=== PATIENT | female | born 1995 | race Caucasian/White ===

== ENCOUNTER 2017-08-20 15:16 | Emergency (ER) | payer OTHER ==
[2017-08-20 16:53] VITALS: BP 135/81
--- NOTE | 2017-08-20 17:15 | UC ---
Lower Extremity/Ankle HPI - HPI Summary HPI Summary: pt states she rolled her L ankle stepping off a curb 2 days ago. she is c/o pain and swelling. she notes she got an abrasion to her r knee as well. triage noted foot pain but pt denies that on exam. last tetanus shot is unknown. - History of Current Complaint Hx Obtained From: Patient Hx Last Menstrual Period: Spotting since 08/06/17- irregular menes ?: No Onset/Duration: Sudden Onset Pain Intensity: 5 Aggravating Factor(s): Ambulation Alleviating Factor(s): Rest Able to Bear Weight: Yes - Risk Factors Gout Risk Factors: Negative DVT Risk Factors: Negative Septic Arthritis Risk Factor: Negative <Katrin Hartman - Last Filed: 08/20/17 18:30> <Jeanette Wharton - Last Filed: 08/20/17 19:30> - History of Current Complaint Chief Complaint: UCLowerExtremity Stated Complaint: LEFT ANKLE Time Seen by Provider: 08/20/17 17:03 - Allergies/Home Medications Allergies/Adverse Reactions: Allergies Allergy/AdvReac Type Severity Reaction Status Date / Time lactose Allergy Diarrhea Verified 08/20/17 16:48 Home Medications: Home Medications Ibuprofen TAB* [Advil TAB*] 600 mg PO ONCE PRN 08/20/17 [History Confirmed 08/20] PMH/Surg Hx/FS Hx/Imm Hx Previously Healthy: Yes Other History Of: Negative For: HIV, Hepatitis B, Hepatitis C - Surgical History Surgical History: Yes Surgery Procedure, Year, and Place: TONSILLECTOMY - Family History Known Family History: Positive: Hypertension - Social History Occupation: Employed Full-time Alcohol Use: Occasionally Substance Use Type: Marijuana Substance Use Comment - Amount & Last Used: Daily Smoking Status (MU): Never Smoked Tobacco Household Exposure Type: Cigarettes <Katrin Hartman - Last Filed: 08/20/17 18:30> Review of Systems Constitutional: Negative Skin: Other - Abrasion r knee Eyes: Negative ENT: Negative Respiratory: Negative Cardiovascular: Negative Gastrointestinal: Negative Genitourinary: Negative Motor: Negative Neurovascular: Negative Musculoskeletal: Other: - pain, swelling L ankle Neurological: Negative Psychological: Negative Is Patient Immunocompromised?: No All Other Systems Reviewed And Are Negative: Yes <Katrin Hartman - Last Filed: 08/20/17 18:30> Physical Exam Triage Information Reviewed: Yes Appearance: Well-Appearing Vital Signs: Initial Vital Signs Temp 98.7 F 08/20/17 16:49 Pulse 96 08/20/17 16:49 Resp 16 08/20/17 16:49 BP 135/81 08/20/17 16:49 Pulse Ox 98 08/20/17 16:49 Vital Signs Reviewed: Yes Eye Exam: Normal ENT: Positive: Normal ENT inspection Neck: Positive: Supple, Nontender Respiratory: Positive: Lungs clear, Normal breath sounds Cardiovascular: Positive: RRR, No Murmur Abdomen Description: Positive: Nontender, No Organomegaly, Soft Bowel Sounds: Positive: Present Musculoskeletal: Positive: Other: - RLE: abrasion R anterior knee with no red, swelling or tenderness, s/v/m is intact. LLE: hip, knee, achilles and foot are atraumatic. Lateral ankle with swelling, mild bruising and tender. Foot has full s/v/m function. <Katrin Hartman - Last Filed: 08/20/17 18:30> Vital Signs: Initial Vital Signs Temp 98.7 F 08/20/17 16:49 Pulse 96 08/20/17 16:49 Resp 16 08/20/17 16:49 BP 135/81 08/20/17 16:49 Pulse Ox 98 08/20/17 16:49 <Jeanette Wharton - Last Filed: 08/20/17 19:30> Diagnostics - Laboratory Diagnostic Studies Completed/Ordered: hcg=negative - Radiology No standard instances Xray Interpretation: Positive (See Comments) - sts, no fx/dislocation Radiology Interpretation Completed By: Radiologist <Katrin Hartman - Last Filed: 08/20/17 18:30> Lower Extremity Course/Dx - Course Course Of Treatment: abrasion R knee not infected and was cleaned. pt states tetanus is probably utd and is refusing update here citing it would hurt to much. L ankle=no fx/dislocation. pain medication declined. - Differential Dx/Diagnosis Provider Diagnoses: Abrasion R knee. sprain L ankle <Katrin Hartman - Last Filed: 08/20/17 18:30> Discharge - Sign-Out/Discharge Documenting (check all that apply): Discharge - Billing Disposition and Condition Condition: STABLE Disposition: HOME <Katrin Hartman - Last Filed: 08/20/17 18:30> - Billing Disposition and Condition Condition: STABLE Disposition: HOME <Jeanette Wharton - Last Filed: 08/20/17 19:30> - Discharge Plan Condition: Stable Disposition: HOME Patient Education Materials: Ankle Sprain (ED), Abrasion (ED) Forms: *Work Release Referrals: ARMEN Mak [Primary Care Provider] - 7 Days Additional Instructions: lyle and splint until cleared Attestation Statement User Type: Provider - I was available for consult. This patient was seen by the advanced practice provider. The patient was not presented to, seen by, or examined by me.-Franco <Jeanette Wharton - Last Filed: 08/20/17 19:30>
--- NOTE | 2017-08-20 18:22 | RAD ---
INDICATION: Lateral left ankle pain after inversion injury COMPARISON: None. TECHNIQUE: 3 views of the left ankle were obtained. FINDINGS: There is a mild degree of soft tissue swelling overlying the fibular malleolus. The well corticated bones exhibit normal alignment. Joint spaces appear maintained. No fracture is seen. IMPRESSION: MILD SOFT TISSUE SWELLING OVERLYING THE FIBULAR MALLEOLUS WITHOUT UNDERLYING FRACTURE OR DISLOCATION. If the patient's symptoms persist, follow-up imaging is recommended.
== END 2017-08-20 18:41 | disposition home or self-care (01) ==
LOC: UCCORT 15:16
DX: S80.211A Abrasion, right knee, initial encounter (principal); S93.402A Sprain of unspecified ligament of left ankle, initial encounter; X50.0XXA Overexertion from strenuous movement or load, initial encounter; Y93.01 Activity, walking, marching and hiking; Y92.480 Sidewalk as the place of occurrence of the external cause; Z32.02 Encounter for pregnancy test, result negative
CPT/HCPCS: 84702; 99213; G0463

== ENCOUNTER 2017-11-23 14:01 | Emergency (ER) | payer OTHER ==
[2017-11-23 14:21] VITALS: BP 140/96
--- NOTE | 2017-11-23 14:22 | UC ---
Skin Complaint HPI - HPI Summary HPI Summary: Patient states that on October 18 of this year she had a ganglion removed from her right foot by Dr. Jose Tolbert. The stitches were removed 2 weeks after the procedure. The day after suture removal the wound popped open. Patient notes that same week the wound started to drain. She followed up with her surgeon and was diagnosed with an infection. He treated her with Augmentin for 10 days after which it was much improved. About 3 days ago she states she developed a yellow foul-smelling drainage. She called the surgeon and sent him a picture. She states he advised that the wound looked fine to him; however, he wrote her for a second course of Augmentin for 7 days. She picked up the prescription yesterday but didn't want to start it until she got the wound checked. Patient denies any history of fever chills, acute injury, MRSA and diabetes. She's had no difficulty with ambulation. She has no other complaints. She does however offered that she applied some butterfly Band-Aids to the site. - History of Current Complaint Hx Obtained From: Patient Hx Last Menstrual Period: Spotting since 08/06/17- irregular menes <Katrin Hartman - Last Filed: 11/23/17 14:48> <Jeanette Wharton - Last Filed: 11/23/17 15:03> - History of Current Complaint Time Seen by Provider: 11/23/17 14:08 Stated Complaint: SKIN CONCERN - Allergy/Home Medications Allergies/Adverse Reactions: Allergies Allergy/AdvReac Type Severity Reaction Status Date / Time lactose Allergy Diarrhea Verified 11/23/17 14:08 Home Medications: Home Medications Amoxicillin/Clavulanate TAB* [Augmentin TAB 875*] 875 mg PO BID 11/23/17 [ History Confirmed 11/23/17] Ibuprofen TAB* [Motrin TAB* 800 MG] 800 mg PO Q6H 11/23/17 [History Confirmed ] Review of Systems Constitutional: Negative Skin: Rash - R foot infection Eyes: Negative ENT: Negative Respiratory: Negative Cardiovascular: Negative Gastrointestinal: Negative Genitourinary: Negative Motor: Negative Neurovascular: Negative Musculoskeletal: Negative Neurological: Negative Psychological: Negative Is Patient Immunocompromised?: No All Other Systems Reviewed And Are Negative: Yes <Katrin Hartman - Last Filed: 11/23/17 14:48> PMH/Surg Hx/FS Hx/Imm Hx - Additional Past Medical History Additional PMH: ganglion R foot Other History Of: Negative For: HIV, Hepatitis B, Hepatitis C - Surgical History Surgical History: Yes Surgery Procedure, Year, and Place: TONSILLECTOMY - Family History Known Family History: Positive: Hypertension - Social History Occupation: Employed Full-time Alcohol Use: Occasionally Substance Use Type: Marijuana Substance Use Comment - Amount & Last Used: Daily Smoking Status (MU): Never Smoked Tobacco Household Exposure Type: Cigarettes <Katrin Hartman - Last Filed: 11/23/17 14:48> Physical Exam Triage Information Reviewed: Yes Appearance: Well-Appearing Vital Signs Reviewed: Yes Eyes: Positive: Conjunctiva Clear ENT: Positive: Normal ENT inspection Neck: Positive: Supple, Nontender, No Lymphadenopathy Respiratory: Positive: Lungs clear, Normal breath sounds Cardiovascular: Positive: RRR, No Murmur Abdomen Description: Positive: Nontender, No Organomegaly, Soft Bowel Sounds: Positive: Present Musculoskeletal: Positive: ROM Intact Neurological: Positive: Alert Psychological: Positive: Age Appropriate Behavior Skin Exam: Normal, Other - Right foot exam: There are 3 Steri-Strips and placed to the distal lateral aspect of the foot over the surgical site. When compared to the left foot, there is no swelling or erythema or warmth. With patient permission, I removed the Steri-Strips. There is no malodor. There is no drainage. There is a pale superficial flap which I was able to lift. The area underneath appears to be healing; however, I did obtain a culture. The foot has gross sensorivascular motor function up to the point of the procedure. Patient does note sensation to the fifth toe is mildly diminished. <Katrin Hartman - Last Filed: 11/23/17 14:48> Vital Signs: Initial Vital Signs Temp 98.5 F 11/23/17 14:12 Pulse 89 11/23/17 14:12 Resp 16 11/23/17 14:12 BP 140/96 11/23/17 14:12 Pulse Ox 100 11/23/17 14:12 <Jeanette Wharton - Last Filed: 11/23/17 15:03> Course/Dx - Course Course Of Treatment: post op site has no swelling, erythema, malodor or drainage. i see no active infection. she is to resume tx per her surgeon along with close f/u for a recheck. I have a culture pending. she is to f/u sooner for any concerns. site covered wityh bacitracin and a sterile 2x2 gauze held with non occlusive tape - Diagnoses Provider Diagnoses: Wound check R foot. <Katrin Hartman - Last Filed: 11/23/17 14:48> Discharge - Sign-Out/Discharge Documenting (check all that apply): Discharge/Admit/Transfer - Billing Disposition and Condition Condition: STABLE Disposition: Home <Katrin Hartman - Last Filed: 11/23/17 14:48> - Billing Disposition and Condition Condition: STABLE Disposition: Home <Jeanette Wharton - Last Filed: 11/23/17 15:03> - Discharge Plan Condition: Stable Disposition: HOME Patient Education Materials: Acute Wound Care (ED) Referrals: Monica Turpin MD [Primary Care Provider] - If Needed Jose Tolbert DPM [Doctor of Podiatric Medicine] - Additional Instructions: CONTINUE TREATMENT PER YOUR SURGEON. TAKE THE AUGMENTIN DIRECTED. FOLLOW UP DR JEWELL IN 7 DAYS OR SOONER IF WORSE. Attestation Statement User Type: Provider - I was available for consult. This patient was seen by the [facility]. The patient was not presented to, seen by, or examined by me. -Franco <Jeanette Wharton - Last Filed: 11/23/17 15:03>
--- NOTE | 2017-11-26 07:26 | ED ---
Progress - Progress Note Progress Note: Call patient to see how they are doing. Katrin Hartman note states the wound was healing well with no foul smell and no drainage. They are on Augmentin. If they are doing well, then follow up with their doctor. If they are worse they need to be seen again. Course/Dx - Course Course Of Treatment: post op site has no swelling, erythema, malodor or drainage. i see no active infection. she is to resume tx per her surgeon along with close f/u for a recheck. I have a culture pending. she is to f/u sooner for any concerns. site covered wityh bacitracin and a sterile 2x2 gauze held with non occlusive tape Discharge - Sign-Out/Discharge Documenting (check all that apply): Discharge/Admit/Transfer - Discharge Plan Condition: Stable Disposition: HOME Patient Education Materials: Acute Wound Care (ED) Referrals: Monica Turpin MD [Primary Care Provider] - If Needed Jose Tolbert DPM [Doctor of Podiatric Medicine] - Additional Instructions: CONTINUE TREATMENT PER YOUR SURGEON. TAKE THE AUGMENTIN DIRECTED. FOLLOW UP DR JEWLEL IN 7 DAYS OR SOONER IF WORSE. - Billing Disposition and Condition Condition: STABLE Disposition: Home
== END 2017-11-23 14:52 | disposition home or self-care (01) ==
LOC: UCCORT 14:01
DX: Z48.00 Encounter for change or removal of nonsurgical wound dressing (principal); Z77.22 Contact with and (suspected) exposure to environmental tobacco smoke (acute) (chronic)
CPT/HCPCS: 87070; 87077; 87186; 87205; 87640; 87641; 99211; G0463

== ENCOUNTER 2018-08-05 16:23 | Emergency (ER) | payer OTHER ==
[2018-08-05 18:18] VITALS: BP 126/79
--- NOTE | 2018-08-05 18:44 | UC ---
Throat Pain/Nasal Bar HPI - HPI Summary HPI Summary: 23 yo female with sore throat x 1 week fatigue swollen glands no f/c no vomiting has had nausea and diarrhea - History of Current Complaint Chief Complaint: UCRespiratory Stated Complaint: THROAT COMPLAINT Time Seen by Provider: 08/05/18 18:10 Hx Obtained From: Patient Hx Last Menstrual Period: 'A MONTH AGO' Onset/Duration: Gradual Onset, Lasting Days Severity: Mild Pain Intensity: 4 Pain Scale Used: 0-10 Numeric Associated Signs & Symptoms: Negative: Dysphagia, FB Sensation, Drooling, Wheezing, Hoarseness, Sinus Discomfort, Nasal Discharge, Fever, Vomiting, Rash Related History: Prior ENT Surgery, T & A - Epiglottits Risk Factors Epiglottis Risk Factors: Negative - Allergies/Home Medications Allergies/Adverse Reactions: Allergies Allergy/AdvReac Type Severity Reaction Status Date / Time lactose Allergy Diarrhea Verified 08/05/18 18:12 Home Medications: Home Medications PARoxetine HCL TAB* [Paxil TAB*] 1 tab DAILY 08/05/18 [History Confirmed ] Vilazodone HCl [Viibryd] 1 tab DAILY 08/05/18 [History Confirmed 08/05/18] clonazePAM TAB(*) [Klonopin TAB(*)] 1 tab DAILY PRN 08/05/18 [History Confirmed 08/05/18] PMH/Surg Hx/FS Hx/Imm Hx Previously Healthy: Yes Other History Of: Negative For: HIV, Hepatitis B, Hepatitis C - Surgical History Surgical History: Yes Surgery Procedure, Year, and Place: TONSILLECTOMY. CYST REOMVED RIGHT FOOT - Family History Known Family History: Positive: Hypertension - Social History Alcohol Use: Rare Substance Use Type: Marijuana Substance Use Comment - Amount & Last Used: Daily Smoking Status (MU): Never Smoked Tobacco Household Exposure Type: Cigarettes Review of Systems All Other Systems Reviewed And Are Negative: Yes Constitutional: Positive: Fatigue Skin: Positive: Negative Eyes: Positive: Negative ENT: Positive: Sore Throat Respiratory: Positive: Negative Cardiovascular: Positive: Negative Gastrointestinal: Positive: Diarrhea - 4-5 x day for past 2 days, Nausea Genitourinary: Positive: Negative Motor: Positive: Negative Neurovascular: Positive: Negative Musculoskeletal: Positive: Negative Neurological: Positive: Headache Psychological: Positive: Negative Physical Exam Triage Information Reviewed: Yes Appearance: Well-Appearing, No Pain Distress, Well-Nourished Vital Signs: Initial Vital Signs Temp 98.3 F 08/05/18 18:13 Pulse 84 08/05/18 18:13 Resp 16 08/05/18 18:13 BP 126/79 08/05/18 18:13 Pulse Ox 98 08/05/18 18:13 Vital Signs Reviewed: Yes Eyes: Positive: Conjunctiva Clear ENT: Positive: Hearing grossly normal, Pharyngeal erythema, TMs normal, Uvula midline. Negative: Nasal congestion, Nasal drainage, Tonsillar swelling, Tonsillar exudate, Trismus, Muffled voice, Hoarse voice Neck: Positive: Supple, Enlarged Nodes @ - L>R ant cerv Respiratory: Positive: Lungs clear, Normal breath sounds, No respiratory distress, No accessory muscle use Cardiovascular: Positive: RRR, No Murmur Abdomen Description: Negative: Nontender - tender LLQ Musculoskeletal: Positive: ROM Intact, No Edema Neurological Exam: Normal Neurological: Positive: Alert Psychological Exam: Normal Throat Pain/Nasal Course/Dx - Course Course Of Treatment: strep (-) - Differential Dx/Diagnosis Provider Diagnosis: Pharyngitis, Acute diarrhea Discharge - Sign-Out/Discharge Documenting (check all that apply): Patient Departure All imaging exams completed and their final reports reviewed: No Studies - Discharge Plan Condition: Stable Disposition: HOME Patient Education Materials: Pharyngitis (ED) Referrals: Monica Turpin MD [Primary Care Provider] - 4 Days (if not better) Additional Instructions: strep (-) test for mono pending rest fluids tylenol or advil bring in stools for studies - Billing Disposition and Condition Condition: STABLE Disposition: Home
[2018-08-06 10:30] LABS: ABS Basophils 0 10^3/ul (0-0.2); ABS Eosinophils 0.1 10^3/ul (0-0.6); ABS Lymphocytes 1.9 10^3/ul (1.0-4.8); ABS Monocytes 0.5 10^3/ul (0-0.8); ABS Neutrophils 4.8 10^3/ul (1.5-7.7); ABS Nucleated RBC 0 10^3/ul; Eosinophil % 0.8 %; Hematocrit 42 % (35-47); Lymphocyte % 26.4 %; Mean Corpuscular HGB Conc 34 g/dl (31-36); Mean Corpuscular Hemoglobin 30 pg (27-31); Mean Corpuscular Volume 88 fL (80-97); Mean Platelet Volume 9.6 fL (7.4-10.4); Nucleated Red Blood Cells % 0.2; Platelet Count 240 10^3/ul (150-450); Red Blood Count 4.72 10^6/ul (4.00-5.40); Red Cell Distribution Width 14 % (10.5-15); White Blood Count 7.3 10^3/ul (3.5-10.8)
== END 2018-08-05 18:55 | disposition home or self-care (01) ==
LOC: UCCORT 16:23
DX: J02.9 Acute pharyngitis, unspecified (principal); R19.7 Diarrhea, unspecified; Z91.011 Allergy to milk products
CPT/HCPCS: 36415; 85025; 86308; 87651; 99211; G0463

== ENCOUNTER 2019-02-15 15:28 | Emergency (ER) | payer OTHER ==
[2019-02-15 16:06] VITALS: BP 118/74
--- NOTE | 2019-02-15 16:41 | UC ---
Complaint Female HPI - HPI Summary HPI Summary: Pt presents with c/o vaginal itching, tenderness, pain with sexual intercourse, irregular vaginal bleeding X 2 weeks. Pt is sexually active and uses condoms for control and STI prevention. - History Of Current Complaint Chief Complaint: UCGU Stated Complaint: PERSONAL Time Seen by Provider: 02/15/19 16:02 Hx Obtained From: Patient Hx Last Menstrual Period: 01/25/19 ?: No Onset/Duration: Gradual Onset, Lasting Weeks - 2, Still Present Timing: Constant Severity Initially: Mild Severity Currently: Moderate Pain Intensity: 5 Character: Sharp, Dull, Burning Aggravating Factor(s): [place], Urination Alleviating Factor(s): Nothing Associated Signs And Symptoms: Positive: Vaginal Bleeding/Discharge, Vaginal Discharge - Risk Factors Ectopic Risk Factor: Negative Ovarian Torsion Risk Factor: Reproductive Age - Allergies/Home Medications Allergies/Adverse Reactions: Allergies Allergy/AdvReac Type Severity Reaction Status Date / Time lactose Allergy Diarrhea Verified 02/15/19 16:07 PMH/Surg Hx/FS Hx/Imm Hx Previously Healthy: Yes Other History Of: Negative For: HIV, Hepatitis B, Hepatitis C - Surgical History Surgical History: Yes Surgery Procedure, Year, and Place: TONSILLECTOMY. CYST REOMVED RIGHT FOOT - Family History Known Family History: Positive: Hypertension - Social History Occupation: Employed Full-time Lives: With Family Alcohol Use: Rare Substance Use Type: Marijuana Substance Use Comment - Amount & Last Used: Daily Smoking Status (MU): Never Smoked Tobacco Have You Smoked in the Last Year: No Household Exposure Type: Cigarettes Review of Systems All Other Systems Reviewed And Are Negative: Yes Constitutional: Positive: Negative Skin: Positive: Negative Eyes: Positive: Negative ENT: Positive: Negative Respiratory: Positive: Negative Cardiovascular: Positive: Negative Gastrointestinal: Positive: Negative Genitourinary: Positive: Vaginal/Penile Burning, Vaginal/Penile Itching, Vaginal /Penile Discharge, Vaginal/Penile Pain, Abnormal Bleeding Motor: Positive: Negative Neurovascular: Positive: Negative Musculoskeletal: Positive: Negative Neurological: Positive: Negative Psychological: Positive: Negative Is Patient Immunocompromised?: No Physical Exam Triage Information Reviewed: Yes Appearance: Well-Appearing Vital Signs: Initial Vital Signs Temp 99.4 F 02/15/19 16:01 Pulse 81 02/15/19 16:01 Resp 16 02/15/19 16:01 BP 118/74 02/15/19 16:01 Pulse Ox 100 02/15/19 16:01 Vital Signs Reviewed: Yes Eye Exam: Normal ENT Exam: Normal ENT: Positive: Hearing grossly normal Respiratory: Positive: No respiratory distress Abdominal Exam: Normal Abdomen Description: Positive: Nontender Pelvic Exam: Positive: Discharge - thick white, Other - labia minora erythemtous , thick white discharge, Musculoskeletal Exam: Normal Neurological Exam: Normal Psychological Exam: Normal Skin Exam: Normal Complaint Female Dx - Differential Dx/Diagnosis Differential Diagnosis/HQI/PQRI: Cervicitis, Pelvic Inflammatory Disease, Sexually Transmitted Disease Provider Diagnosis: Vaginitis Discharge ED - Sign-Out/Discharge Documenting (check all that apply): Patient Departure All imaging exams completed and their final reports reviewed: No Studies - Discharge Plan Condition: Stable Disposition: HOME Prescriptions: Miconazole VAG.SUPP* [Monistat7*] 100 mg VAGINAL BEDTIME #7 vag.supp Patient Education Materials: Vaginitis (ED) Referrals: Monica Turpin MD [Primary Care Provider] - If Needed Additional Instructions: Please follow up with your PCP as needed. - Billing Disposition and Condition Condition: STABLE Disposition: Home
[2019-02-17 13:32] LABS: Chlamydia trachomatis NAA Negative (Negative); Neisseria gonorrhoeae (GC) NAA Negative (Negative)
--- NOTE | 2019-02-17 17:36 | UC ---
- Progress Note Progress Note: Reviewed notes: assessed on 02/15 for sx highly suggestive of yeast vaginitis, Affirm negative. Rx sent not available so will send terconazole. Aware to follow up with PMD if symptoms are persisting. Course/Dx - Diagnoses Provider Diagnoses: Vaginitis Discharge ED - Sign-Out/Discharge Documenting (check all that apply): Patient Departure All imaging exams completed and their final reports reviewed: No Studies - Discharge Plan Condition: Stable Disposition: HOME Prescriptions: Miconazole VAG.SUPP* [Monistat7*] 100 mg VAGINAL BEDTIME #7 vag.supp Terconazole 20 gm VG DAILY #20 gm Patient Education Materials: Vaginitis (ED) Referrals: Monica Turpin MD [Primary Care Provider] - If Needed Additional Instructions: Please follow up with your PCP as needed. - Billing Disposition and Condition Condition: STABLE Disposition: Home
== END 2019-02-15 16:52 | disposition home or self-care (01) ==
LOC: UCCORT 15:28
DX: N76.0 Acute vaginitis (principal)
CPT/HCPCS: 81003; 84702; 87480; 87491; 87510; 87591; 87661; 99212; G0463

== ENCOUNTER 2019-07-16 13:48 | Emergency (ER) | payer OTHER ==
[2019-07-16 14:20] VITALS: BP 123/91
--- NOTE | 2019-07-16 14:36 | UC ---
Throat Pain/Nasal Bar HPI - HPI Summary HPI Summary: Patient is a 24yo female presenting with nasal congestion and sinus pressure x2 days. States concern for sinus infection. Notes sore throat, b/l earache, and " I think vertigo" yesterday. Denies sore throat today. Denies cough. Denies n/v. Denies fever and chills. Taking advil as needed. - History of Current Complaint Chief Complaint: UCRespiratory Stated Complaint: SINUS EAR SORE THROAT Hx Obtained From: Patient Hx Last Menstrual Period: ended 07/12/19 Pain Intensity: 2 Pain Scale Used: 0-10 Numeric - Allergies/Home Medications Allergies/Adverse Reactions: Allergies Allergy/AdvReac Type Severity Reaction Status Date / Time lactose Allergy Diarrhea Verified 07/16/19 14:14 Home Medications: Home Medications clonazePAM TAB(*) [Klonopin TAB(*)] 1 tab PO DAILY PRN 08/05/18 [History Confirmed 07/16/19] PMH/Surg Hx/FS Hx/Imm Hx Other History Of: Negative For: HIV, Hepatitis B, Hepatitis C - Surgical History Surgical History: Yes Surgery Procedure, Year, and Place: TONSILLECTOMY. CYST REOMVED RIGHT FOOT - Family History Known Family History: Positive: Hypertension - Social History Alcohol Use: Occasionally Substance Use Type: Marijuana Substance Use Comment - Amount & Last Used: Daily Smoking Status (MU): Never Smoked Tobacco Have You Smoked in the Last Year: No Household Exposure Type: Cigarettes Review of Systems All Other Systems Reviewed And Are Negative: Yes Constitutional: Positive: Negative ENT: Positive: Sore Throat, Ear Ache, Sinus Congestion, Sinus Pain/Tenderness Respiratory: Positive: Negative Cardiovascular: Positive: Negative Gastrointestinal: Positive: Negative Musculoskeletal: Positive: Negative Neurological/Mental Status: Positive: Negative Physical Exam - Summary Physical Exam Summary: Vital Signs Reviewed: Yes A+Ox3, no distress Eyes: Conjunctiva Clear ENT: Hearing grossly normal, TM x 2 clear, moist, uvula midline, no exudate, no erythema Neck: Positive: Supple Respiratory: Positive: No respiratory distress, No accessory muscle use + CTA throughout no w/r Cardiovascular: RRR nl s1, s2 no m/r Musculoskeletal Exam: BARFIELD x 4 without difficulty Neurological: Positive: Alert Psychological: Positive: age appropriate behavior Skin: Positive: no rash, no ecchymosis Vital Signs: Initial Vital Signs Temp 97.4 F 02/19/20 14:15 Pulse 68 07/16/19 14:15 Resp 16 07/16/19 14:15 BP 123/91 07/16/19 14:15 Pulse Ox 97 07/16/19 14:15 Lab Results 07/16/19 Range/Units 14:47 Influenza A (Rapid) Negative (Negative) Influenza B (Rapid) Negative (Negative) Throat Pain/Nasal Course/Dx - Course Course Of Treatment: Negative rapid flu. Patient declined shift testing. Discussed viral URI with patient and symptomatic treatment. Instructed to follow up with PCP if symptoms persist. Patient voiced understanding and agreed with the treatment plan. - Differential Dx/Diagnosis Differential Diagnosis/HQI/PQRI: Influenza, Pharyngitis, Sinusitis, URI Provider Diagnosis: Viral URI Discharge ED - Sign-Out/Discharge Documenting (check all that apply): Patient Departure All imaging exams completed and their final reports reviewed: No Studies - Discharge Plan Condition: Stable Disposition: HOME Patient Education Materials: Upper Respiratory Infection (ED) Referrals: Monica Turpin MD [Primary Care Provider] - If Needed Additional Instructions: Your flu test was negative today. You may use Flonase as directed for symptomat relief. You may continue with ibuprofen as directed for pain relief. Get plenty of rest and increase your fluid intake. Follow up with your primary care provider if your symptoms do not resolve within 7-10 days. - Billing Disposition and Condition Condition: STABLE Disposition: Home
[2019-07-16 14:59] LABS: Influenza A Molecular Negative (Negative); Influenza B Molecular Negative (Negative)
== END 2019-07-16 15:13 | disposition home or self-care (01) ==
LOC: UCCORT 13:48
DX: J06.9 Acute upper respiratory infection, unspecified (principal); H92.03 Otalgia, bilateral; Z91.011 Allergy to milk products
CPT/HCPCS: 99211; G0463